=== PATIENT | male | born 1960 | race African-American/Black ===

== ENCOUNTER 2018-12-13 18:18 | Inpatient (IN) | payer OTHER, MEDICAID ==
[~2018-12-13] VITALS: Ht 172.7 cm; Wt 70.8 kg
[2018-12-13 19:07] LABS: BASOPHILS 0.4 % (0-2); EOSINOPHILS 0.7 % (0-7); HEMATOCRIT 36.9 % (42.0-54.0); HEMOGLOBIN 12.5 g/dL (13.5-17.5); IMMATURE GRANULOCYTES 0.1 % (0-5); LYMPHOCYTES 20.3 % (15-50); MCHC 33.9 g/dL (31.0-37.0); MCV 82.6 fL (80.0-100.0); MEAN PLATELET VOLUME 9.8 fL (7.4-10.4); MONOCYTES 8.4 % (2-11); NEUTROPHILS 70.1 % (40-80); PLATELET COUNT 148 10x3/uL (130-400); RBC 4.47 10x6/uL (4.20-6.10); RDW 14.7 % (11.5-14.5); WBC 7.3 10x3/uL (4.8-10.8)
[2018-12-13 19:36] LABS: ALBUMIN 3.8 g/dL (3.4-5.0); ANION GAP 12.1 mmol/L (8-16); BILIRUBIN - TOTAL 0.36 mg/dL (0.2-1.3); CALCIUM 8.7 mg/dL (8.5-10.1); CARBON DIOXIDE 25.9 mmol/L (21.0-32.0); CREATININE - SERUM 1.2 mg/dL (0.6-1.3); PROTEIN - SERUM 7.5 g/dL (6.4-8.2)
[2018-12-13 19:55] LABS: APTT 29.1 SECONDS (22.8-39.4); INR 1.14 (0.85-1.17); PROTIME 14.1 SECONDS (11.6-15.0)
[2018-12-13 19:56] LABS: D-DIMER-QUANTITATIVE 0.77 ug/mLFEU (0.20-0.54)
[2018-12-13 20:04] VITALS: BP 173/110
--- NOTE | 2018-12-13 21:01 | NUR ---
PT REPORT HANDED SCOTT, FLOOR NURSE.
--- NOTE | 2018-12-13 22:30 | NUR ---
PT ARRIVED TO ROOM 2123, PT IS AAO, LEFT FOREARM IV 20G WITH ANTIBIOTIC FINISHING INFUSING FROM ER. PT SAID [facility] BUT DENIES ANY HOME MEDIATIONS. DENIES ANY HISTORY EXCEPT HTN AND "SOME KIND OF HEPATITIS" SAID THAT HE GAVE A PACKET TO ER. PT HAS NO S/S OF DISTRESS. BEDLOW AND CALL LIGHT IN REACH. PT VERBALIZED UNDERSTANDING OF NPO AFTER MIDNIGHT . PT WILL CALL FOR ASSIST WHEN NEEDED. WILL CPOC
[2018-12-13 23:26] VITALS: BP 153/110
--- NOTE | 2018-12-14 | NUR ---
PT CALLED COMPLAINING. WHEN NURSE WALKED IN ROOM PT SET STRAIGHT UP IN BED AND STARTED SPEAKING ANGRY ABOUT WHY DID HE TELL NURSES WHAT INSURANCE HE IS ON, SAID HE SOULD HAVE ANOTHER BAG GOING ALREADY AND POINTED AT IV FLUIDS AND THEN GOT LOUDER AND SAID HE ASKED FOR PAIN MEDICATIONS IN ER AND ON THE FLOOR AT 2220 AND NURSE SAID SHE WOULD BE BACK. I CORRECTED PT AND LET HIM KNOW NURSE DOESNT LOOK AT INSURANCE, NURSE STATED THAT PT NEVER TOLD THAT HE IS WANTING PAIN MEDICATION NURSE ASKED WHERE IS THE PAIN. PT STATES HERE AND PULLS HIS SHIRT UP AND SHOWS NURSE HIS SCAR THAT IS MIDLINE LOWER ABDOMEN. TOLD PT NURSE WILL CALL DOCTOR. PT AGAIN SAID I CALLED FOR YOU OVER 30 MINS AGO, BUT YOU DONT CARE BECAUSE YOU GET PAID BY THE HOUR, NURSE STOPPED PT AND ASKED IF NURSE COULD SPEAK. ASKED PT TO LOOK AT NURSE PT REFUSED. NURSE TOLD PT THAT THERE ARE 6 OTHER PEOPLE UNDER MY CARE AND NURSE MAY TAKE A MOMENT TO COME INTO ROOM AT TIMES DEPENDING ON PRIORITY OF SITUATION. EXPLAINED TO PT THAT THERE ARE NOT ANY MORE IV FLUIDS SCHEDULED AT THIS TIME. AND THAT NURSE WILL CALL DOCTOR LORE FOR PT PAIN COMPLAINT. WILL CPOC
--- NOTE | 2018-12-14 00:17 | NUR ---
CALLED DR TORREZ REGARDING PT COMPLAINING OF ABDOMEN PAIN IN MIDLINE SCARING LOWER ABDOMEN. AND LET DR KNOW WHAT PT HAS SAID TO NURSE AND HOW PT ACTED. DOCTOR ORDERED URINE DRUG SCREEN DR ORDERED TRAMADOL 50MG Q6H PRN AND ASKED NURSE TO CHECK THE [facility] WILL PLACE ORDERS.
--- NOTE | 2018-12-14 01:07 | NUR ---
TRAMADOL GIVEN, PT VERBALIZED UNDERSTANDING OF MEDICATION. LOOKED NURSE IN EYES AND SPOKE POLITE AT THIS TIME. EDUCATED PT OF NEED FOR UDS. PT VERBALIZED UNDERSTANDING. PT BEDLOW AND CALL LIGHT IN REACH. WILL CPOC
[2018-12-14 01:54] LABS: UDS - AMPHET NEGATIVE QUAL (NEGATIVE); UDS - BARB NEGATIVE QUAL (NEGATIVE); UDS - BENZO NEGATIVE QUAL (NEGATIVE); UDS - COCAINE NEGATIVE QUAL (NEGATIVE); UDS - OPIATE NEGATIVE QUAL (NEGATIVE); UDS - PCP NEGATIVE QUAL (NEGATIVE); UDS - THC NEGATIVE QUAL (NEGATIVE)
[2018-12-14 05:32] VITALS: BP 149/74
[2018-12-14 06:13] VITALS: BP 134/91; BMI 23.7
--- NOTE | 2018-12-14 07:30 | NUR ---
ASSESSMENT COMPLETED. DENIES ANY NEEDS. NPO FOR SURGERY. LEFT AC WITH NS AT 125. ALERT AND ORIENTED. DRSG TO RIGHT LOWER LEG DRY AND INTACT IV TO LEFT AC. WILL MONITOR
--- NOTE | 2018-12-14 07:30 | NUR ---
ASSESSMENT COMPLETED. ALERT AND ORIENTED. LEFT FA SL. NPO FOR BRONCHSCOPY. DENIES ANY NEEDS. WANTING DOCTOR TO SEE HIM NOW SO HE CAN GO HOME. WILL MONITOR
[2018-12-14 09:31] VITALS: BP 168/117
[2018-12-14 10:40] VITALS: BMI 23.7
[2018-12-14 13:46] VITALS: Ht 172.7 cm; Wt 70.8 kg
--- NOTE | 2018-12-14 14:35 | NUR ---
I CONCUR WITH ASSESSMENT PERFORMED BY THE [employer] ARCHITECT
[2018-12-14 14:39] LABS: % SATURATION 33 % (15-55); IRON 109 ug/dl (35-150); TOTAL IRON BIND CAPACITY 324 ug/dl (260-445); UNSAT IRON BIND CAPACITY 215 ug/dl (150-375)
--- NOTE | 2018-12-14 15:46 | MORECARE ---
CASE MANAGEMENT DISCHARGE SUMMARY PATIENT: NAPOLEON SUTHERLAND UNIT: [id number] ADM DATE: 12/13/18 AGE: 58 : 60 SEX: M ROOM/BED: D.2124 AUTHOR: GRIFFIN AVENDAÑO PHYSICIAN: REFERRING PHYSICIAN: HARINDER TORREZ MD DATE OF SERVICE: 12/14/18 Discharge Plan Patient Name: NAPOLEON SUTHERLAND [facility] : 1960 Planned Disposition: Other Type of Facility Anticipated Discharge Date: Discharge Date: Expected LOS: Initial Reviewer: [email or web address] Initial Review Date: 12/13/2018 Generated: 12/14/18 4:45 pm Patient Name: NAPOLEON SUTHERLAND Page 11649 at 1546 All edits/amendments must be made on the electronic document DICTATION DATE: 12/14/18 1545 SEAT COVERER: JAMAL 12/14/18 1545 RPT#: [id number] DC DATE: STATUS: ADM IN [facility] [address] [place] [address] END OF REPORT
--- NOTE | 2018-12-14 15:59 | MORECARE ---
CASE MANAGEMENT DISCHARGE SUMMARY PATIENT: NAPOLEON SUTHERLAND UNIT: [id number] ADM DATE: 12/13/18 AGE: 58 : 60 SEX: M ROOM/BED: D.2124 AUTHOR: GRIFFIN AVENDAÑO PHYSICIAN: REFERRING PHYSICIAN: HARINDER TORREZ MD DATE OF SERVICE: 12/14/18 Discharge Plan Patient Name: NAPOLEON SUTHERLAND Facility: [facility]:[place] : 1960 Planned Disposition: Other Type of Facility Anticipated Discharge Date: Discharge Date: Expected LOS: Initial Reviewer: [email or web address] Initial Review Date: 12/13/2018 Generated: 12/14/18 4:59 pm DCPIA - Discharge Planning Initial Assessment Updated by [email or web address]: Consuelo Hall on 12/14/18 3:51 pm * Is the patient Alert and Oriented? Yes * How many steps to enter\exit or inside your home? none * PCP States he does not have a PCP * [facility]acy [facility] [address] [facility] Has [facility] in [place], [place], [place], [place], [place], [place], [place], [place]. * Preadmission Environment Other * Other Environment [facility] * Facility Name as above * ADLs Independent * Other Equipment Denies any DME at present * List name and contact numbers for known caregivers / representatives who currently or will assist patient after discharge: Juliet Casanova- [facility]- [phone] * Verbal permission to speak to the caregivers and representatives has been obtained from the patient. No * Community resources currently utilized None * Please name any agencies selected above. N/A * Additional services required to return to the preadmission environment? Yes * Can the patient safely return to the preadmission environment? Yes * Has this patient been hospitalized within the prior 30 days at any hospital? Yes Last DP export: 12/14/18 2:46 pm Patient Name: NAPOLEON SUTHERLAND Page [id number] at All edits/amendments must be made on the electronic document DICTATION DATE: 12/14/18 2762 HAZ TECH: JAMAL 12/14/18 3969 RPT#: [id number] DC DATE: STATUS: ADM IN [facility] [address] [place] [address] END OF REPORT
--- NOTE | 2018-12-14 16:18 | MORECARE ---
CASE MANAGEMENT DISCHARGE SUMMARY PATIENT: NAPOLEON SUTHERLAND UNIT: [id number] ADM DATE: 12/13/18 AGE: 58 : 60 SEX: M ROOM/BED: D.3909 AUTHOR: KATERYNA,DOC PHYSICIAN: REFERRING PHYSICIAN: HARINDER TORREZ MD DATE OF SERVICE: 12/14/18 Discharge Plan Patient Name: NAPOLEON SUTHERLAND Facility: [facility]:[place] : 1960 Planned Disposition: Other Type of Facility Anticipated Discharge Date: Discharge Date: Expected LOS: Initial Reviewer: [email or web address] Initial Review Date: 12/13/2018 Generated: 12/14/18 5:17 pm Comments DCP- Discharge Planning Updated by [email or web address]: Consuelo Hall on 12/14/18 3:[address] CM met with the patient at the bedside. Explained my role and requested permission to proceed with the assessment. Patient consented. He initially stated he lived with his stepmother. He made reference to staying with foloks, family members, who say they will help but do not. Stated they do not follow thru and want money. CM again addressed if he was staying with his stepmother, he said he was at the [facility] in [place]. He does not want any information discussed w/ family members. CM ask if he had been hospitalized within the last 30 days. He stated he had not. As per his H/P he was recently released from a psych facility in [place]. CM checked his medical record. He was released from [facility] in [facility]. He had an appt for the walkin clinic at [facility] scheduled for today. Denies any DME. States he can afford his medications and will get them. He is not a . He will need transportation at discharge. He will need an appointment scheduled for [facility] as follow up at discharge. Phone number [phone]. Patient states he is "anointed and cannot be touched". He is post bronchoscopy today maybe medication affect. CM will follow to assist w/ discharge planning needs. CM called [facility] to advise the patient was hospitalized. They will refuse to f/u with patients if appts are missed. . DCPIA - Discharge Planning Initial Assessment Updated by [email or web address]: Consuelo Powhatan on 12/14/18 3:51 pm * Is the patient Alert and Oriented? Yes * How many steps to enter\\exit or inside your home? none * PCP States he does not have a PCP * [facility]acy [facility] [address] [facility] Has utilized [facility] in [place], [place], [place], [place], [place] ,[place], [place], [place]. * Preadmission Environment Other * Other Environment [facility] * Facility Name as above * ADLs Independent * Other Equipment Denies any DME at present * List name and contact numbers for known caregivers / representatives who currently or will assist patient after discharge: Juliet Casanova- [facility]- [phone] * Verbal permission to speak to the caregivers and representatives has been obtained from the patient. No * Community resources currently utilized None * Please name any agencies selected above. N/A * Additional services required to return to the preadmission environment? Yes * Can the patient safely return to the preadmission environment? Yes * Has this patient been hospitalized within the prior 30 days at any hospital? Yes Last DP export: 12/14/18 2:59 pm Patient Name: NAPOLEON SUTHERLAND Page 46699 at 1618 All edits/amendments must be made on the electronic document DICTATION DATE: 12/14/181616 PRODUCTION BROACHER: JAMAL 12/14/181616 RPT#: [id number] DC DATE: STATUS: ADM IN [facility] [address] [place] [address] END OF REPORT
[2018-12-14 17:18] VITALS: BP 131/86
--- NOTE | 2018-12-14 19:05 | NUR ---
PT LAYING ON LEFT SIDE ASLEEP. RESP EVEN AND UNLABORED. NAME AND DATE PLACED ON BOARD. NO S/S OF DISTRESS. PT BEDLOW AND CALL LIGHT IN REACH. WILL CPOC
[2018-12-14 20:00] VITALS: BP 131/85
--- NOTE | 2018-12-14 20:52 | NUR ---
ROCEPHIN STARTED INFUSING. LIBRIUM AND TRAMADOL GIVEN. PT VERBALIZED UNDERSTANDING OF MEDICATION. PT IS AAO. DENIES ANY NEEDS. NO S/S OF DISTRESS. PT SAID "I AM SORRY FOR MY OUTBURST LAST NIGHT AND THE WAY I TREATED YOU" TOLD PT I APPRECIATE THAT BUT NURSE WASNT MAD. JUST GLAD HE IS FEELING BETTER. PT HAS DINNER AT BEDSIDE. DOESNT WANT IT HEATED UP. WILL HEAT WHEN PT ASKS. PT WILL CALL FOR ASSIST WHEN NEEDED. WILL CPOC
[2018-12-14 21:01] LABS: APPEARANCE CLEAR (CLEAR); BILIRUBIN NEGATIVE (NEGATIVE); COLOR YELLOW (YELLOW); GLUCOSE NEGATIVE (NEGATIVE); KETONE NEGATIVE (NEGATIVE); NITRITE NEGATIVE (NEGATIVE); PROTEIN NEGATIVE (NEGATIVE); UROBILINOGEN NORMAL (NORMAL)
[2018-12-14 21:04] LABS: MACROPHAGES BF 25 %; NEUT - BF 2 %
--- NOTE | 2018-12-14 22:11 | NUR ---
PT REQUESTING CIGARETTE PACKER BECAUSE NURSE DID NOT GET IN TO CRYPTOZOOLOGIST ANTIBIOTIC YET. EDUCATED PT IN IV FLUIDS AND ATTEMPTED TO CHANGE ANTIBIOTICS NEEDED. PT STATED "IM NOT FUCKING WITH YALL DOWN THERE GETTING HIGH RUNNING AROUND NOT DOING YOUR JOB" EXPLAINED TO PT REASONING FOR BEING LATE AND AGAIN ATTEMPTED TO HANG ANTIBIOTIC. HE STATED NO GET THE CIGARETTE PACKER NOW. CALLED [facility] CIGARETTE PACKER
--- NOTE | 2018-12-14 22:33 | NUR ---
FUEL CELL TECHNICIAN SPOKE WITH PT AND SUGGESTED CHANGING NURSES. NEW NURSE TAKING OVER PATIENT.
--- NOTE | 2018-12-14 23:01 | NUR ---
TOOK OVER PT FROM PT'S PREVIOUS RN, MARIA FERNANDA. RESTRATED PT ATBX. HELP PT HEAT UP HIS FOOD PER PT REQUEST. PT STATES HE WILL LIKE TO GET SOME SLEEP WHEN HE IS DONE EATING AND HIS "SLEEPING PILL" DOES NOT SEEM TO BE WORKING. EDUCATE PT THAT IT TAKES A LITTLE WHILE BEFORE HIS "SLEEPING PILL" PEAKS. PT DENIES ANY FURTHER NEEDS AT THIS TIME. WILL CPOC. CL IN REACH, BED IN LOW, SR UPX2.
[2018-12-15] VITALS: BP 139/72
--- NOTE | 2018-12-15 02:57 | NUR ---
PT C/O PAIN IN HIS ABDOMEN AND STATES HE CAN'T SEEM TO GET ENOUGH SLEEP. PO ULTRAM GIVEN AT THIUS TIME. WILL CPOC. CL IN REACH, BED IN LOW.
[2018-12-15 04:30] VITALS: BP 117/73
[2018-12-15 06:21] LABS: BASOPHILS 0.5 % (0-2); EOSINOPHILS 1.7 % (0-7); HEMATOCRIT 38.5 % (42.0-54.0); HEMOGLOBIN 12.8 g/dL (13.5-17.5); IMMATURE GRANULOCYTES 0.1 % (0-5); LYMPHOCYTES 26.5 % (15-50); MCH 27.5 pg (26.0-34.0); MCHC 33.2 g/dL (31.0-37.0); MCV 82.6 fL (80.0-100.0); MEAN PLATELET VOLUME 10.4 fL (7.4-10.4); NEUTROPHILS 63.2 % (40-80); PLATELET COUNT 167 10x3/uL (130-400); RBC 4.66 10x6/uL (4.20-6.10); WBC 8.5 10x3/uL (4.8-10.8)
[2018-12-15 06:39] LABS: CALCIUM 8.6 mg/dL (8.5-10.1); CARBON DIOXIDE 27.2 mmol/L (21.0-32.0); CREATININE - SERUM 1.1 mg/dL (0.6-1.3); POTASSIUM - SERUM 4.2 mmol/L (3.5-5.1)
--- NOTE | 2018-12-15 07:36 | NUR ---
MORNING ROUNDS MADE. PT LAYING IN BED RESTING. ALERT AND ORIENTED X 4. DENIES PAIN AT THIS TIME. 2L O2 VIA NC. L AC IV SL. REFUSES SCD'S AT THIS TIME. NO EDEMA NOTED. HEART RRR. NO COUGH NOTED. VITALS STABLE. NO FURTHER CONCERNS AT THIS TIME. FALL PRECAUTIONS IN PLACE. BED LOWERED AND LOCKED. CL IN REACH. SR UP X 2. WILL CTM.
--- NOTE | 2018-12-15 08:12 | NUR ---
PT SITTING UP EATING BREAKFAST. VITALS STABLE. TOOK MEDS WITHOUT DIFFICULTY. NO FURTHER CONCERNS AT THIS TIME. FALL PRECAUTIONS IN PLACE. BED LOWERED AND LOCKED. CL IN REACH. WILL CTM.
[2018-12-15 09:40] VITALS: BP 103/71
[2018-12-15] MEDS ORDERED: COREG 3.1253.125 MG PO (11:33)
[2018-12-15 13:14] VITALS: BP 113/83
--- NOTE | 2018-12-15 13:25 | MORECARE ---
CASE MANAGEMENT DISCHARGE SUMMARY PATIENT: NAPOLEON SUTHERLAND UNIT: [id number] ADM DATE: 12/13/18 AGE: 58 : 60 SEX: M ROOM/BED: D.7635 AUTHOR: KATERYNA,DOC PHYSICIAN: REFERRING PHYSICIAN: HARINDER TORREZ MD DATE OF SERVICE: 12/15/18 Discharge Plan Patient Name: NAPOLEON SUTHERLAND Facility: [facility]:[place] : 1960 Planned Disposition: Other Type of Facility Anticipated Discharge Date: 12/15/18 Discharge Date: Expected LOS: 2 Initial Reviewer: [email or web address] Initial Review Date: 12/13/2018 Generated: 12/15/18 2:24 pm DCP- Discharge Planning Updated by [email or web address]: Consuelo Hall on 12/14/18 3:[address] CM met with the patient at the bedside. Explained my role and requested permission to proceed with the assessment. Patient consented. He initially stated he lived with his stepmother. He made reference to staying with foloks, family members, who say they will help but do not. Stated they do not follow thru and want money. CM again addressed if he was staying with his stepmother, he said he was at the [facility] in [place]. He does not want any information discussed w/ family members. CM ask if he had been hospitalized within the last 30 days. He stated he had not. As per his H/P he was recently released from a psych facility in [place]. CM checked his medical record. He was released from [facility] in [facility]. He had an appt for the walkin clinic at [facility] scheduled for today. Denies any DME. States he can afford his medications and will get them. He is not a . He will need transportation at discharge. He will need an appointment scheduled for [facility] as follow up at discharge. Phone number [phone]. Patient states he is "anointed and cannot be touched". He is post bronchoscopy today maybe medication affect. CM will follow to assist w/ discharge planning needs. CM called [facility] to advise the patient was hospitalized. They will refuse to f/u with patients if appts are missed. . DCPIA - Discharge Planning Initial Assessment Updated by [email or web address]: Consuelorosaline Hall on 12/14/18 3:51 pm * Is the patient Alert and Oriented? Yes * How many steps to enter\\exit or inside your home? none * PCP States he does not have a PCP * [facility]acy [facility] [address] [facility] in [place], [place], [place], [place], [place] ,[place], [place], [place]. * Preadmission Environment Other * Other Environment [facility] * Facility Name as above * ADLs Independent * Other Equipment Denies any DME at present * List name and contact numbers for known caregivers / representatives who currently or will assist patient after discharge: Juliet Dolan Edilberto- [facility]enna [facility]- [phone] * Verbal permission to speak to the caregivers and representatives has been obtained from the patient. No * Community resources currently utilized None * Please name any agencies selected above. N/A * Additional services required to return to the preadmission environment? Yes * Can the patient safely return to the preadmission environment? Yes * Has this patient been hospitalized within the prior 30 days at any hospital? Yes Last DP export: 12/14/18 3:17 pm Patient Name: NAPOLEON SUTHERLAND Page [id number] at 1325 All edits/amendments must be made on the electronic document DICTATION DATE: 12/15/18 1324 GROUT MACHINE TENDER: JAMAL 12/15/18 1324 RPT#: [id number] DC DATE: STATUS: ADM IN [facility] [address] [place] [address] END OF REPORT
--- NOTE | 2018-12-15 13:34 | MORECARE ---
CASE MANAGEMENT DISCHARGE SUMMARY PATIENT: NAPOLEON SUTHERLAND UNIT: [id number] ADM DATE: 12/13/18 AGE: 58 : 60 SEX: M ROOM/BED: D.1959 AUTHOR: KATERYNADOC PHYSICIAN: REFERRING PHYSICIAN: HARINDER TORREZ MD DATE OF SERVICE: 12/15/18 Discharge Plan Patient Name: NAPOLEON SUTHERLAND Facility: [facility]:[place] : 1960 Planned Disposition: Other Type of Facility Anticipated Discharge Date: 12/15/18 Discharge Date: Expected LOS: 2 Initial Reviewer: [email or web address] Initial Review Date: 12/13/2018 Generated: 12/15/18 2:34 pm Comments DCP- Discharge Planning Updated by [email or web address]: Marcos Rodgers on 12/15/18 12:[address] Patient Name: NAPOLEON SUTHERLAND Encounter No: [id number] : 1960 Primary Insurance: [id number] Anticipated DC Date: 12-15-2018 Planned Disposition: Other Type of Facility External Planned Provider: [facility] [place] DCP follow-up note: CM RECEIVED DISCHARGE ORDER, MET WITH PT ROOM TO DISCUSS DISCHARGE PLANNING AND NEEDS. PT REPORTS HE IS GOING TO [facility] AND ASKED FOR TRANSPORTATION ASSISTANCE. CM PROVIDED BUS PASS. PT REPORTS PLAN TO REMAIN IN [place] AND WOULD LIKE FOLLOW UP APPOINTMENT IN [place]; PT HAS NOT WAY TO GO TO [place] FOR PRIMARY CARE FOLLOW UP AND STATES " I DON'T KNOW WHERE THAT IS." PT DENIES FURTHER DISCHARGE NEEDS. SR. DIRECTOR PRODUCT MANAGEMENT NURSE NOTIFIED. Marcos Rodgers, CASE MANAGEMENT DCP- Discharge Planning Updated by [email or web address]: Consuelo Hall on 12/14/18 3:[address] CM met with the patient at the bedside. Explained my role and requested permission to proceed with the assessment. Patient consented. He initially stated he lived with his stepmother. He made reference to staying with foloks, family members, who say they will help but do not. Stated they do not follow thru and want money. CM again addressed if he was staying with his stepmother, he said he was at the [facility] in [place]. He does not want any information discussed w/ family members. CM ask if he had been hospitalized within the last 30 days. He stated he had not. As per his H/P he was recently released from a psych facility in [place]. CM checked his medical record. He was released from [facility] in [facility]. He had an appt for the walkin clinic at [facility] scheduled for today. Denies any DME. States he can afford his medications and will get them. He is not a . He will need transportation at discharge. He will need an appointment scheduled for [facility] as follow up at discharge. Phone number [phone]. Patient states he is "anointed and cannot be touched". He is post bronchoscopy today maybe medication affect. CM will follow to assist w/ discharge planning needs. CM called [facility] to advise the patient was hospitalized. They will refuse to f/u with patients if appts are missed. . DCPIA - Discharge Planning Initial Assessment Updated by [email or web address]: Consuelo Hall on 12/14/18 3:51 pm * Is the patient Alert and Oriented? Yes * How many steps to enter\\exit or inside your home? none * PCP States he does not have a PCP * Pharmacy [facility] [address] [facility] [place], [place], [place], [place], [place], [place], [place], [place]. * Preadmission Environment Other * Other Environment [facility] * Facility Name as above * ADLs Independent * Other Equipment Denies any DME at present * List name and contact numbers for known caregivers / representatives who currently or will assist patient after discharge: Juliet Casanova- kenna mother- [phone] * Verbal permission to speak to the caregivers and representatives has been obtained from the patient. No * Community resources currently utilized None * Please name any agencies selected above. N/A * Additional services required to return to the preadmission environment? Yes * Can the patient safely return to the preadmission environment? Yes * Has this patient been hospitalized within the prior 30 days at any hospital? Yes Last DP export: 12/15/18 12:25 p Patient Name: NAPOLEON SUTHERLAND Page [id number] at 1334 All edits/amendments must be made on the electronic document DICTATION DATE: 12/15/181333 COTTON GROWER: JAMAL 12/15/181333 RPT#: [id number] DC DATE: STATUS: ADM IN [facility] [address] [place] [address] END OF REPORT
--- NOTE | 2018-12-15 14:00 | NUR ---
DC GIVEN TO PT. IV REMOVED TIP INTACT.
--- NOTE | 2018-12-15 14:01 | NUR ---
PT DC VIA WHEELCHAIR TO BUS STOP.
[2018-12-15 17:08] LABS: AFB SPECIMEN PROCESSING Concentration (())
[2018-12-15 17:08] LABS: FOLATE (FOLIC ACID) - SERUM 9.9 ng/mL (>3.0)
[2019-02-02 13:18] LABS: ACID FAST CULTURE Negative (()); ACID FAST SMEAR Negative (())
== END 2018-12-15 14:01 | disposition home or self-care (01) | DRG 194 ==
LOC: D.ER 18:18 → D.M2 20:03
PROVIDERS: Emergency Medicine; Family Medicine; Internal Medicine Pulmonary Disease; ADMIT Internal Medicine Nephrology; ATTEND Internal Medicine Nephrology
PROC: 0B9F8ZX Drainage of Right Lower Lung Lobe, Via Natural or Artificial Opening Endoscopic, Diagnostic (ICD-10-PCS; principal; 2018-12-14 10:55)
DX: J18.9 Pneumonia, unspecified organism (principal); R04.2 Hemoptysis; N17.9 Acute kidney failure, unspecified; F17.213 Nicotine dependence, cigarettes, with withdrawal; I10 Essential (primary) hypertension; D64.9 Anemia, unspecified; F10.10 Alcohol abuse, uncomplicated; F32.9 Major depressive disorder, single episode, unspecified; Z86.718 Personal history of other venous thrombosis and embolism

== ENCOUNTER 2018-12-20 00:45 | Emergency (ER) | payer MEDICAID ==
[~2018-12-20] VITALS: Ht 172.7 cm; Wt 72.7 kg
[~2018-12-20 00:45] MED LIST: COREG 3.1253.125 MG PO
[2018-12-20 01:13] LABS: APPEARANCE CLEAR (CLEAR); BILIRUBIN NEGATIVE (NEGATIVE); COLOR YELLOW (YELLOW); GLUCOSE NEGATIVE (NEGATIVE); KETONE NEGATIVE (NEGATIVE); NITRITE NEGATIVE (NEGATIVE); PROTEIN NEGATIVE (NEGATIVE); UROBILINOGEN NORMAL (NORMAL)
[2018-12-20 01:18] LABS: UDS - AMPHET NEGATIVE QUAL (NEGATIVE); UDS - BARB NEGATIVE QUAL (NEGATIVE); UDS - BENZO POSITIVE QUAL (NEGATIVE); UDS - COCAINE NEGATIVE QUAL (NEGATIVE); UDS - OPIATE NEGATIVE QUAL (NEGATIVE); UDS - PCP NEGATIVE QUAL (NEGATIVE); UDS - THC POSITIVE QUAL (NEGATIVE)
[2018-12-20 01:20] LABS: BASOPHILS 0.5 % (0-2); EOSINOPHILS 1.8 % (0-7); HEMATOCRIT 33.9 % (42.0-54.0); HEMOGLOBIN 11.4 g/dL (13.5-17.5); IMMATURE GRANULOCYTES 0.3 % (0-5); LYMPHOCYTES 23.2 % (15-50); MCH 27.5 pg (26.0-34.0); MCHC 33.6 g/dL (31.0-37.0); MCV 81.7 fL (80.0-100.0); MEAN PLATELET VOLUME 9.4 fL (7.4-10.4); MONOCYTES 7.4 % (2-11); NEUTROPHILS 66.8 % (40-80); PLATELET COUNT 153 10x3/uL (130-400); RBC 4.15 10x6/uL (4.20-6.10); RDW 14.7 % (11.5-14.5); WBC 6.7 10x3/uL (4.8-10.8)
[2018-12-20] MEDS ORDERED: ZOLOFT100 MG PO (01:23)
[2018-12-20] MEDS ORDERED: GEODON40 MG PO (01:24)
[2018-12-20 01:36] LABS: ALBUMIN 3.6 g/dL (3.4-5.0); ALKALINE PHOSPHATASE 76 U/L (46-116); ALT (SGPT) 35 U/L (10-68); BILIRUBIN - TOTAL 0.42 mg/dL (0.2-1.3); CALC OSMOLALITY 273 mosm/kg (275-300); CALCIUM 8.2 mg/dL (8.5-10.1); CARBON DIOXIDE 21.8 mmol/L (21.0-32.0); CHLORIDE - SERUM 104 mmol/L (98-107); CREATININE - SERUM 0.9 mg/dL (0.6-1.3); GLUCOSE 95 mg/dL (74-106); MAGNESIUM - SERUM 1.8 mg/dL (1.8-2.4); POTASSIUM - SERUM 4.2 mmol/L (3.5-5.1); PROTEIN - SERUM 7.4 g/dL (6.4-8.2); SODIUM 137 mmol/L (136-145); UREA NITROGEN 12 mg/dL (7-18); eGFR NON AFRICAN AMERICAN > 90 mL/min (90-120)
== END 2018-12-20 04:04 ==
LOC: D.ER 00:45
PROVIDERS: Family Medicine
DX: F32.9 Major depressive disorder, single episode, unspecified (principal); R44.0 Auditory hallucinations; Z86.19 Personal history of other infectious and parasitic diseases; I10 Essential (primary) hypertension; Z91.14 Patient's other noncompliance with medication regimen; R45.851 Suicidal ideations

== ENCOUNTER 2019-01-17 12:47 | Emergency (ER) | payer OTHER, MEDICAID ==
[~2019-01-17] VITALS: Ht 172.7 cm; Wt 70.5 kg
[~2019-01-17 12:47] MED LIST changes: +GEODON40 MG PO; +ZOLOFT100 MG PO
[2019-01-17 12:52] VITALS: Ht 172.7 cm; Wt 70.5 kg
[2019-01-17 16:26] LABS: BASOPHILS 0.4 % (0-2); EOSINOPHILS 2.2 % (0-7); HEMOGLOBIN 12.9 g/dL (13.5-17.5); IMMATURE GRANULOCYTES 0.2 % (0-5); LYMPHOCYTES 32.7 % (15-50); MCH 28.2 pg (26.0-34.0); MCHC 33.9 g/dL (31.0-37.0); MCV 83.2 fL (80.0-100.0); MEAN PLATELET VOLUME 10.6 fL (7.4-10.4); MONOCYTES 10.4 % (2-11); NEUTROPHILS 54.1 % (40-80); RBC 4.57 10x6/uL (4.20-6.10); RDW 16.2 % (11.5-14.5); WBC 4.9 10x3/uL (4.8-10.8)
[2019-01-17 16:45] LABS: PLATELET COUNT 122 10x3/uL (130-400)
[2019-01-17 16:51] LABS: ALBUMIN 3.8 g/dL (3.4-5.0); ALKALINE PHOSPHATASE 78 U/L (46-116); ALT (SGPT) 42 U/L (10-68); BILIRUBIN - TOTAL 0.74 mg/dL (0.2-1.3); CALC OSMOLALITY 278 mosm/kg (275-300); CALCIUM 8.9 mg/dL (8.5-10.1); CARBON DIOXIDE 28.3 mmol/L (21.0-32.0); CHLORIDE - SERUM 103 mmol/L (98-107); GLUCOSE 91 mg/dL (74-106); POTASSIUM - SERUM 4.3 mmol/L (3.5-5.1); SODIUM 140 mmol/L (136-145); UREA NITROGEN 13 mg/dL (7-18); eGFR NON AFRICAN AMERICAN 81 mL/min (90-120)
[2019-01-17 18:38] LABS: CKMB 0.9 U/L (0.0-3.6); CREATINE KINASE 205 UL (21-232)
[2019-01-17 18:39] LABS: TROPONIN-I < 0.017 ng/mL (0.000-0.060)
[2019-01-17] MEDS ORDERED: COREG 3.1253.125 MG PO (20:26)
[2019-01-17 20:57] VITALS: BP 125/92
== END 2019-01-17 20:57 | disposition home or self-care (01) ==
LOC: D.ER 12:47
PROVIDERS: Family Medicine
DX: Z71.1 Person with feared health complaint in whom no diagnosis is made (principal); Z59.0 Homelessness

== ENCOUNTER 2019-07-18 11:46 | Inpatient (IN) | payer OTHER, MEDICAID ==
[~2019-07-18] VITALS: Ht 172.7 cm; Wt 68.2 kg
[2019-07-18 17:01] LABS: BASOPHILS 0.5 % (0-2); EOSINOPHILS 3.3 % (0-7); HEMATOCRIT 37.5 % (42.0-54.0); HEMOGLOBIN 12.2 g/dL (13.5-17.5); IMMATURE GRANULOCYTES 0.2 % (0-5); LYMPHOCYTES 30.2 % (15-50); MCH 28.4 pg (26.0-34.0); MCHC 32.5 g/dL (31.0-37.0); MCV 87.2 fL (80.0-100.0); MEAN PLATELET VOLUME 9.3 fL (7.4-10.4); NEUTROPHILS 55.8 % (40-80); PLATELET COUNT 119 10x3/uL (130-400); RDW 14.5 % (11.5-14.5); WBC 6.3 10x3/uL (4.8-10.8)
[2019-07-18 17:20] LABS: CALC OSMOLALITY 276 mosm/kg (275-300); CALCIUM 8.9 mg/dL (8.5-10.1); CARBON DIOXIDE 28.1 mmol/L (21.0-32.0); CHLORIDE - SERUM 102 mmol/L (98-107); GLUCOSE 92 mg/dL (74-106); POTASSIUM - SERUM 3.9 mmol/L (3.5-5.1); SODIUM 139 mmol/L (136-145); UREA NITROGEN 9 mg/dL (7-18); eGFR NON AFRICAN AMERICAN 81 mL/min (90-120)
[2019-07-18 17:27] LABS: ALBUMIN 3.4 g/dL (3.4-5.0); ALKALINE PHOSPHATASE 75 U/L (46-116); ALT (SGPT) 29 U/L (10-68); BILIRUBIN - TOTAL 0.57 mg/dL (0.2-1.3); PROTEIN - SERUM 7.4 g/dL (6.4-8.2)
[2019-07-18 19:30] VITALS: BP 119/76
[2019-07-19] VITALS (7 sets, daily range): BP systolic 100–123; BP diastolic 57–78; Ht 172.7 cm; Wt 68.2 kg
--- NOTE | 2019-07-19 03:06 | NUR ---
I have reviewed this patient and I concur with the Shift Assessment completed by the Licensed Practical Nurse today this shift.
[2019-07-19 04:52] LABS: BASOPHILS 0.3 % (0-2); HEMATOCRIT 36.2 % (42.0-54.0); HEMOGLOBIN 11.6 g/dL (13.5-17.5); IMMATURE GRANULOCYTES 0.4 % (0-5); LYMPHOCYTES 26.1 % (15-50); MCH 27.7 pg (26.0-34.0); MCV 86.4 fL (80.0-100.0); MEAN PLATELET VOLUME 10.1 fL (7.4-10.4); MONOCYTES 11.1 % (2-11); NEUTROPHILS 59.1 % (40-80); PLATELET COUNT 141 10x3/uL (130-400); RBC 4.19 10x6/uL (4.20-6.10); RDW 14.7 % (11.5-14.5); WBC 6.8 10x3/uL (4.8-10.8)
[2019-07-19 05:11] LABS: INR 1.13 (0.85-1.17)
[2019-07-19 05:12] LABS: APTT 38.4 SECONDS (22.8-39.4)
[2019-07-19 05:20] LABS: D-DIMER-QUANTITATIVE 18.37 ug/mLFEU (0.20-0.54)
[2019-07-19 05:26] LABS: ALBUMIN 2.9 g/dL (3.4-5.0); ALKALINE PHOSPHATASE 66 U/L (46-116); ALT (SGPT) 25 U/L (10-68); BILIRUBIN - TOTAL 0.38 mg/dL (0.2-1.3); CALC OSMOLALITY 273 mosm/kg (275-300); CALCIUM 8.1 mg/dL (8.5-10.1); CARBON DIOXIDE 26.9 mmol/L (21.0-32.0); CHLORIDE - SERUM 103 mmol/L (98-107); GLUCOSE 93 mg/dL (74-106); MAGNESIUM - SERUM 1.6 mg/dL (1.8-2.4); PHOSPHOROUS 4.4 mg/dL (2.5-4.9); POTASSIUM - SERUM 4.2 mmol/L (3.5-5.1); PRO BNP 41 pg/mL (0-125); PROTEIN - SERUM 6.6 g/dL (6.4-8.2); SODIUM 137 mmol/L (136-145); UREA NITROGEN 13 mg/dL (7-18); eGFR NON AFRICAN AMERICAN 81 mL/min (90-120)
--- NOTE | 2019-07-19 07:10 | NUR ---
PT RESTING IN BED. NO SIGNS OF DISTRESS. IV TO RIGHT FORARM PATENT NO REDNESS OR TENDERNESS. COMPLAINS OF PAIN. WILL ADDRESS. DENIES ANY FURTHER NEED AT THIS TIME. CALL LIGHT IN REACH. BED LOW POSITION. NO FAMILY AT BEDSIDE AT THIS TIME.
[2019-07-19 09:07] LABS: UDS - AMPHET NEGATIVE QUAL (NEGATIVE); UDS - BARB NEGATIVE QUAL (NEGATIVE); UDS - BENZO NEGATIVE QUAL (NEGATIVE); UDS - COCAINE POSITIVE QUAL (NEGATIVE); UDS - OPIATE POSITIVE QUAL (NEGATIVE); UDS - PCP NEGATIVE QUAL (NEGATIVE); UDS - THC POSITIVE QUAL (NEGATIVE)
[2019-07-19 10:13] LABS: APPEARANCE CLEAR (CLEAR); BACTERIA FEW /hpf (NEGATIVE); BILIRUBIN NEGATIVE (NEGATIVE); COLOR YELLOW (YELLOW); GLUCOSE NEGATIVE (NEGATIVE); KETONE NEGATIVE (NEGATIVE); NITRITE NEGATIVE (NEGATIVE); PROTEIN NEGATIVE (NEGATIVE); RED CELLS - URINE 0-5 /hpf (0-5); UROBILINOGEN NORMAL (NORMAL); WHITE CELLS - URINE NSEEN /hpf (NEGATIVE)
[2019-07-19 10:14] LABS: EPITHELIAL CELLS RARE /hpf (0-5)
--- NOTE | 2019-07-19 12:31 | NUR ---
I have reviewed this patient and I concur with the Shift Assessment completed by the Licensed Practical Nurse today this shift.
--- NOTE | 2019-07-20 00:13 | NUR ---
ASSESSED AT THE BEGINNING OF THE SHIFT. PT IS ALERT AND ORIENTED, ABLE TO VERBALIZE NEEDS. HE HAS BEEN RESTING QUIET BUT AT HS DID REQUEST MORPHINE TO HELP LEFT LEG AND GROIN PAIN . THIS HAS ALSO SEEMED TO HELP HIM WITH RESTING AND HE IS ASLEEP AT THIS TIME.
[2019-07-20 00:30] VITALS: BP 122/69
[2019-07-20 05:19] VITALS: BP 131/76
[2019-07-20 06:47] LABS: CALC OSMOLALITY 275 mosm/kg (275-300); CALCIUM 8.5 mg/dL (8.5-10.1); CHLORIDE - SERUM 104 mmol/L (98-107); CREATININE - SERUM 0.9 mg/dL (0.6-1.3); GLUCOSE 99 mg/dL (74-106); MAGNESIUM - SERUM 1.8 mg/dL (1.8-2.4); PHOSPHOROUS 3.6 mg/dL (2.5-4.9); POTASSIUM - SERUM 4.1 mmol/L (3.5-5.1); SODIUM 138 mmol/L (136-145); UREA NITROGEN 13 mg/dL (7-18); eGFR NON AFRICAN AMERICAN > 90 mL/min (90-120)
[2019-07-20 06:49] LABS: BASOPHILS 0.4 % (0-2); EOSINOPHILS 2.3 % (0-7); HEMATOCRIT 35.8 % (42.0-54.0); HEMOGLOBIN 11.7 g/dL (13.5-17.5); IMMATURE GRANULOCYTES 0.4 % (0-5); LYMPHOCYTES 23.7 % (15-50); MCHC 32.7 g/dL (31.0-37.0); MCV 85.6 fL (80.0-100.0); MONOCYTES 10.7 % (2-11); NEUTROPHILS 62.5 % (40-80); PLATELET COUNT 168 10x3/uL (130-400); RBC 4.18 10x6/uL (4.20-6.10); RDW 14.5 % (11.5-14.5); WBC 7.5 10x3/uL (4.8-10.8)
--- NOTE | 2019-07-20 07:40 | NUR ---
PT IS RESTING IN BED WITH EYES OPEN. RESPIATIONS ARE EVEN AND UNLABORED. PT IS AAO X 4. PT REPORTS PAIN TO LEFT GROIN. WILL ADDRESS. SEE EMAR. BILATERAL PEDAL PULSES PALP. PT DENIES PRESENCE OF N/V. PT STATES THAT HE HAS "A LITTLE BIT OF A HEADACHE". PT DENEIS PRESENCE OF DIZZINESS. BED IS IN THE LOWEST POSITION. CALL LIGHT AND BEDSIDE TABLE ARE WITHIN REACH. SIDE RAILS X 2. PT DENIES FURTHER NEEDS. WILL CONT TO MONITOR.
[2019-07-20 08:50] VITALS: BP 121/80
[2019-07-20] MEDS ORDERED: ELIQUIS5 MG PO (09:57)
--- NOTE | 2019-07-20 11:46 | MORECARE ---
CASE MANAGEMENT DISCHARGE SUMMARY PATIENT: NAPOLEON SUTHERLAND III UNIT: [id number] ADM DATE: 07/18/19 AGE: 58 : 60 SEX: M ROOM/BED: D.2230 AUTHOR: GRIFFIN AVENDAÑO PHYSICIAN: REFERRING PHYSICIAN: PATRICIA WATKINS MD DATE OF SERVICE: 07/20/19 Discharge Plan Patient Name: NAPOLEON SUTHERLAND [facility] : 1960 Planned Disposition: Home Anticipated Discharge Date: 07/20/19 Discharge Date: Expected LOS: 2 Initial Reviewer: [email or web address] Initial Review Date: 07/20/2019 Generated: 07/20/19 12:46 pm Patient Name: NAPOLEON SUTHERLAND Page [id number] at 1146 All edits/amendments must be made on the electronic document DICTATION DATE: 07/20/19 1146 DRIVER EDUCATION INSTRUCTOR: JAMAL 07/20/19 1146 RPT#: [id number] DC DATE: STATUS: ADM IN [facility] [address] [place] [address] END OF REPORT
--- NOTE | 2019-07-20 11:55 | MORECARE ---
CASE MANAGEMENT DISCHARGE SUMMARY PATIENT: NAPOLEON SUTHERLAND III UNIT: [id number] ADM DATE: 07/18/19 AGE: 58 : 60 SEX: M ROOM/BED: D.2230 AUTHOR: GRIFFIN AVENDAÑO PHYSICIAN: REFERRING PHYSICIAN: PATRICIA WATKINS MD DATE OF SERVICE: 07/20/19 Discharge Plan Patient Name: NAPOLEON SUTHERLAND [facility] [facility] 1960 Planned Disposition: Home Anticipated Discharge Date: 07/20/19 Discharge Date: Expected LOS: 2 Initial Reviewer: [email or web address] Initial Review Date: 07/20/2019 Generated: 07/20/19 12:55 pm DCPIA - Discharge Planning Initial Assessment Updated by [email or web address]: Fely Bajwa on 07/20/19 11:48 am * Is the patient Alert and Oriented? Yes * How many steps to enter\exit or inside your home? 0/0 * PCP No PCP * Pharmacy [facility] on [facility] * Preadmission Environment Homeless * Other Environment Lives in a tent * ADLs Independent * Equipment None * List name and contact numbers for known caregivers / representatives who currently or will assist patient after discharge: Juliet Casanova [facility] [phone] * Verbal permission to speak to the caregivers and representatives has been obtained from the patient. Yes * Community resources currently utilized None * Additional services required to return to the preadmission environment? No * Can the patient safely return to the preadmission environment? Yes * Has this patient been hospitalized within the prior 30 days at any hospital? No Last DP export: 07/20/19 10:46 Patient Name: NAPOLEON SUTHERLAND Page 32382 at 1155 All edits/amendments must be made on the electronic document DICTATION DATE: 07/20/19 1155 PERINATAL EDUCATOR: JAMAL 07/20/19 1155 RPT#: [id number] DC DATE: STATUS: ADM IN [facility] [address] [place] [address] END OF REPORT
--- NOTE | 2019-07-20 12:05 | NUR ---
PT STATES THAT HE IS UPSET WITH DECISION TO DISCHARGE. PT STATES "THEY AINT DONE NOTHING TO HELP ME. I COME HERE BECAUSE OF PAIN AND DONT NOBODY CARE THAT I AM STILL IN PAIN". PT INFORMED OF ADMITTING DX AND PLAN OF CARE REGARDING ADMISSION DX. PT STATES "THEY STILL AINT DONE NOTHING ABOUT THAT. I AM JUST GOING TO WALK UP OUT OF HERE". PT ENCOURAGED TO WAIT FOR DISCHARGE PAPERS. PT IS COOPERATIVE IN ALLOWING FOR PIV TO RIGHT FA TO BE REMOVED. CATHETER TIP INTACT DRESSING APPLIED. PT STATES THAT HE WILL WAIT FOR DISCHARGE PAPERS AND STATES "IM ALRIGHT. IM ALRIGHT". PT IN ROOM AND DENIES FURTHER NEEDS AT THIS TIME. WILL CONT TO MONITOR.
--- NOTE | 2019-07-20 12:07 | MORECARE ---
CASE MANAGEMENT DISCHARGE SUMMARY PATIENT: NAPOLEON SUTHERLAND III UNIT: [id number] ADM DATE: 07/18/19 AGE: 58 : 60 SEX: M ROOM/BED: D.2230 AUTHOR: KATERYNADOC PHYSICIAN: REFERRING PHYSICIAN: PATRICIA WATKINS MD DATE OF SERVICE: 07/20/19 Discharge Plan Patient Name: NAPOLEON SUTHERLAND Facility: [facility]:[place] : 1960 Planned Disposition: Home Anticipated Discharge Date: 07/20/19 Discharge Date: Expected LOS: 2 Initial Reviewer: [email or web address] Initial Review Date: 07/20/2019 Generated: 07/20/19 1:07 pm Comments DCP- Discharge Planning Updated by [email or web address]: Fely Bajwa on 07/20/19 10:[address] Patient Name: NAPOLEON SUTHERLAND Admission Status: ER Accout number: [id number] Admission Date: 07-18-2019 : 1960 Admission Diagnosis: Attending: PORFIRIO WATKINS Current LOS: 2 Anticipated DC Date: 07-20-2019 Planned Disposition: Home Primary Insurance: NOVESCAPESwithYOU Discharge Planning Comments: CM met with patient to discuss discharge planning/needs, he is alone in the room. Patient states he lives in a tent by [employer]. He states he will walk home. I offered bus tickets and he accepted. I gave him two, so he could get to his pharmacy as well. I also gave him a list of local shelters and substance abuse facilities. He states he has been at [facility] before. He will receive a eliquis coupon on discharge, flow worker notified. CM will continue to follow and assist with discharge planning/needs. Organ Installer: Fely Bajwa DCPIA - Discharge Planning Initial Assessment Updated by [email or web address]: Fely Bajwa on 07/20/19 11:48 am * Is the patient Alert and Oriented? Yes * How many steps to enter\exit or inside your home? 0/0 * PCP No PCP * Pharmacy [facility] on [address] * Preadmission Environment Homeless * Other Environment Lives in a tent * ADLs Independent * Equipment None * List name and contact numbers for known caregivers / representatives who currently or will assist patient after discharge: Juliet Dolan Edilberto [facility] - [phone] * Verbal permission to speak to the caregivers and representatives has been obtained from the patient. Yes * Community resources currently utilized None * Additional services required to return to the preadmission environment? No * Can the patient safely return to the preadmission environment? Yes * Has this patient been hospitalized within the prior 30 days at any hospital? No Last DP export: 07/20/19 10:55 Patient Name: NAPOLEON SUTHERLAND Page [phone] at 1207 All edits/amendments must be made on the electronic document DICTATION DATE: 07/20/191206 POUND ATTENDANT: JAMAL 07/20/191206 RPT#: [id number] DC DATE: STATUS: ADM IN [facility] [address] [place] [address] END OF REPORT
--- NOTE | 2019-07-20 13:00 | NUR ---
ALL DISCHARGE INSTRUCTIONS COVERED WITH PT. PT DENIES FURTHER QUESTIONS AT THIS TIME. PT STATES, "YALL DIDN'T DO ANYTHING TO HELP ME. YALL ARE JUST GOING TO COLLECT MY SALARY. I GUESS YALL JUST WANT ME OUT ON THE STREET". PT EDUCATED ON PLAN OF CARE AND MEDICATION TO BE PICKED UP FROM PHARMACY AND DISCHARGE INSTRUCTIONS. PT DENIES FURTHER NEEDS AND STATES "LETS JUST GET THIS OVER WITH SO I CAN GO". ALL DISCHARGE PAPERS SIGNED. FLU SHOT GIVEN. SEE EMAR. PT AMBULATES FROM ROOM AND REFUSES WHEELCHAIR ESCORT.
--- NOTE | 2019-07-22 14:05 | MORECARE ---
CASE MANAGEMENT DISCHARGE SUMMARY PATIENT: NAPOLEON SUTHERLAND III UNIT: [id number] ADM DATE: 07/18/19 AGE: 58 : 60 SEX: M ROOM/BED: D.2230 AUTHOR: KATERYNA,DOC PHYSICIAN: REFERRING PHYSICIAN: PATRICIA WATKINS MD DATE OF SERVICE: 07/22/19 Discharge Plan Patient Name: NAPOLEON SUTHERLAND Facility[facility]:[place] : 1960 Planned Disposition: Home Anticipated Discharge Date: 07/20/19 Discharge Date: 07/20/2019 Expected LOS: 2 Initial Reviewer: [email or web address] Initial Review Date: 07/20/2019 Generated: 07/22/19 3:05 pm Comments DCP- Discharge Planning Updated by [email or web address]: Fely Bajwa on 07/20/19 10:[address] Patient Name: NAPOLEON SUTHERLAND Admission Status: ER Accout number: [id number] Admission Date: 07-18-2019 : 1960 Admission Diagnosis: Attending: PORFIRIO WATKINS Current LOS: 2 Anticipated DC Date: 07-20-2019 Planned Disposition: Home Primary Insurance: NOVCashier Live Discharge Planning Comments: CM met with patient to discuss discharge planning/needs, he is alone in the room. Patient states he lives in a tent by [employer]. He states he will walk home. I offered bus tickets and he accepted. I gave him two, so he could get to his pharmacy as well. I also gave him a list of local shelters and substance abuse facilities. He states he has been at [facility] before. He will receive a eliquis coupon on discharge, respite coordinator notified. CM will continue to follow and assist with discharge planning/needs. Instrumental Teacher: Feyl Bajwa DCPIA - Discharge Planning Initial Assessment Updated by [email or web address]: Fely Bajwa on 07/20/19 11:48 am * Is the patient Alert and Oriented? Yes * How many steps to enter\exit or inside your home? 0/0 * PCP No PCP * Pharmacy [facility] [address] * Preadmission Environment Homeless * Other Environment Lives in a tent * ADLs Independent * Equipment None * List name and contact numbers for known caregivers / representatives who currently or will assist patient after discharge: Juliet Dolan Edilberto [facility] - [phone] * Verbal permission to speak to the caregivers and representatives has been obtained from the patient. Yes * Community resources currently utilized None * Additional services required to return to the preadmission environment? No * Can the patient safely return to the preadmission environment? Yes * Has this patient been hospitalized within the prior 30 days at any hospital? No Last DP export: 07/20/19 11:07 Patient Name: NAPOLEON SUTHERLAND Page 23045 at 1405 All edits/amendments must be made on the electronic document DICTATION DATE: 07/22/191404 OCCUPATIONAL MEDICINE PHYSICIAN: JAMAL 07/22/19 140 RPT#: [id number] DC DATE:07/20/19 STATUS: DIS IN [facility] [address] [place] [address] END OF REPORT
== END 2019-07-20 13:04 | disposition home or self-care (01) | DRG 300 ==
LOC: D.ER 11:46 → D.MS 17:30
PROVIDERS: Family Medicine; ADMIT Emergency Medicine; ATTEND Emergency Medicine
DX: I82.432 Acute embolism and thrombosis of left popliteal vein (principal); F17.203 Nicotine dependence unspecified, with withdrawal; I10 Essential (primary) hypertension; D64.9 Anemia, unspecified; Z95.828 Presence of other vascular implants and grafts; Z86.718 Personal history of other venous thrombosis and embolism; F19.10 Other psychoactive substance abuse, uncomplicated

== ENCOUNTER 2019-08-17 09:10 | Emergency (ER) | payer OTHER, MEDICAID ==
[~2019-08-17] VITALS: Ht 172.7 cm; Wt 81.8 kg
[~2019-08-17 09:10] MED LIST changes: +ELIQUIS5 MG PO
[2019-08-17 09:19] VITALS: Ht 172.7 cm; Wt 81.8 kg
[2019-08-17 10:15] LABS: BASOPHILS 0.3 % (0-2); EOSINOPHILS 0.9 % (0-7); HEMOGLOBIN 10.4 g/dL (13.5-17.5); IMMATURE GRANULOCYTES 0.2 % (0-5); LYMPHOCYTES 14.9 % (15-50); MCH 27.3 pg (26.0-34.0); MCHC 32.5 g/dL (31.0-37.0); MEAN PLATELET VOLUME 9.7 fL (7.4-10.4); MONOCYTES 8.7 % (2-11); PLATELET COUNT 194 10x3/uL (130-400); RBC 3.81 10x6/uL (4.20-6.10); RDW 14.2 % (11.5-14.5); WBC 6.5 10x3/uL (4.8-10.8)
[2019-08-17 10:23] LABS: APPEARANCE CLEAR (CLEAR); BILIRUBIN NEGATIVE (NEGATIVE); COLOR YELLOW (YELLOW); GLUCOSE NEGATIVE (NEGATIVE); KETONE NEGATIVE (NEGATIVE); NITRITE NEGATIVE (NEGATIVE); PROTEIN TRACE mg/dL (NEGATIVE); UROBILINOGEN NORMAL (NORMAL)
[2019-08-17 10:24] LABS: AMORPHOUS SEDIMENT <1+ /lpf (NONE SEEN); BACTERIA FEW /hpf (NEGATIVE); EPITHELIAL CELLS 0-5 /hpf (0-5); HYALINE CAST 0-5 /lpf (NONE SEEN); MUCUS <1+ /lpf (NONE SEEN); RED CELLS - URINE 0-5 /hpf (0-5); WHITE CELLS - URINE 0-5 /hpf (NEGATIVE)
[2019-08-17 10:26] LABS: ANION GAP 15.4 mmol/L (8-16); CALCIUM 8.8 mg/dL (8.5-10.1); CARBON DIOXIDE 25.6 mmol/L (21.0-32.0); CREATININE - SERUM 1.4 mg/dL (0.6-1.3)
[2019-08-17 10:26] LABS: UDS - AMPHET POSITIVE QUAL (NEGATIVE); UDS - BARB NEGATIVE QUAL (NEGATIVE); UDS - BENZO NEGATIVE QUAL (NEGATIVE); UDS - COCAINE NEGATIVE QUAL (NEGATIVE); UDS - OPIATE NEGATIVE QUAL (NEGATIVE); UDS - PCP NEGATIVE QUAL (NEGATIVE); UDS - THC POSITIVE QUAL (NEGATIVE)
[2019-08-17 10:33] LABS: ALBUMIN 3.4 g/dL (3.4-5.0); BILIRUBIN - TOTAL 0.82 mg/dL (0.2-1.3); MAGNESIUM - SERUM 1.7 mg/dL (1.8-2.4); PROTEIN - SERUM 7.7 g/dL (6.4-8.2)
[2019-08-17 19:14] VITALS: BP 113/74
== END 2019-08-17 19:14 ==
LOC: D.ER 09:10
PROVIDERS: Family Medicine
DX: R20.2 Paresthesia of skin (principal); F15.10 Other stimulant abuse, uncomplicated; N28.9 Disorder of kidney and ureter, unspecified; R44.3 Hallucinations, unspecified; F19.10 Other psychoactive substance abuse, uncomplicated; I10 Essential (primary) hypertension; Z72.0 Tobacco use; Z86.718 Personal history of other venous thrombosis and embolism

== ENCOUNTER 2019-08-30 22:51 | Inpatient (IN) | payer OTHER, MEDICAID ==
[~2019-08-30] VITALS: Ht 172.7 cm; Wt 75.0 kg
[2019-08-30 23:52] LABS: HEMATOCRIT 35.9 % (42.0-54.0); HEMOGLOBIN 11.4 g/dL (13.5-17.5); LYMPHOCYTES 26.3 % (15-50); MCH 27.7 pg (26.0-34.0); MCHC 31.8 g/dL (31.0-37.0); MCV 87.1 fL (80.0-100.0); MEAN PLATELET VOLUME 9.1 fL (7.4-10.4); NEUTROPHILS 61.8 % (40-80); PLATELET COUNT 212 10x3/uL (130-400); RBC 4.12 10x6/uL (4.20-6.10); RDW 15.5 % (11.5-14.5); WBC 7.5 10x3/uL (4.8-10.8)
[2019-08-30 23:56] LABS: ANION GAP 12.2 mmol/L (8-16); CALCIUM 8.3 mg/dL (8.5-10.1); CARBON DIOXIDE 29.3 mmol/L (21.0-32.0); CREATININE - SERUM 1.1 mg/dL (0.6-1.3); POTASSIUM - SERUM 4.5 mmol/L (3.5-5.1)
[2019-08-31 00:02] LABS: ALBUMIN 3.2 g/dL (3.4-5.0); BILIRUBIN - TOTAL 0.32 mg/dL (0.2-1.3); PROTEIN - SERUM 7.4 g/dL (6.4-8.2); URIC ACID 4.8 mg/dL (2.6-7.2)
--- NOTE | 2019-08-31 00:25 | NUR ---
PT GIVEN URINAL, DENIES ANY FURTHER NEEDS AT THIS TIME. CALL LIGHT WITHIN REACH. WILL CONTINUE TO MONITOR.
--- NOTE | 2019-08-31 01:00 | NUR ---
ULTRASOUND AT PT'S BEDSIDE TO DO STUDY.
[2019-08-31 03:49] LABS: APPEARANCE CLEAR (CLEAR); BILIRUBIN NEGATIVE (NEGATIVE); COLOR YELLOW (YELLOW); GLUCOSE NEGATIVE (NEGATIVE); KETONE NEGATIVE (NEGATIVE); NITRITE NEGATIVE (NEGATIVE); PROTEIN NEGATIVE (NEGATIVE); SPECIFIC GRAVITY 1.005 (1.005-1.020); UROBILINOGEN NORMAL (NORMAL)
[2019-08-31 03:54] VITALS: BP 110/76; Ht 172.7 cm; Wt 75.0 kg
[2019-08-31 03:59] LABS: UDS - AMPHET NEGATIVE QUAL (NEGATIVE); UDS - BARB NEGATIVE QUAL (NEGATIVE); UDS - BENZO NEGATIVE QUAL (NEGATIVE); UDS - COCAINE POSITIVE QUAL (NEGATIVE); UDS - OPIATE NEGATIVE QUAL (NEGATIVE); UDS - PCP NEGATIVE QUAL (NEGATIVE); UDS - THC POSITIVE QUAL (NEGATIVE)
--- NOTE | 2019-08-31 04:25 | NUR ---
AT 0345 ARRIVED TO FLOOR VIA HOSP STAFF, ALERT AND ORIENTED. PLEASANT MOOD AND AFFECT. BELONGINGS ARE IN BAGS AT BEDSIDE. ABLE TO VOICE ALL NEEEDS. DENIES PAIN AT THIS TIME. REQUESTS FOOD, GRANTED. WILL NOTE ANY CHANGE.
[2019-08-31 05:43] VITALS: BP 110/76
[2019-08-31 06:38] LABS: PROTIME 13.1 SECONDS (11.6-15.0)
[2019-08-31 06:39] LABS: APTT 40.3 SECONDS (22.8-39.4)
[2019-08-31 08:00] VITALS: BP 116/81
[2019-08-31 08:32] LABS: BASOPHILS 0.7 % (0-2); HEMATOCRIT 34.7 % (42.0-54.0); HEMOGLOBIN 11.2 g/dL (13.5-17.5); IMMATURE GRANULOCYTES 0.3 % (0-5); MCH 27.5 pg (26.0-34.0); MCHC 32.3 g/dL (31.0-37.0); MEAN PLATELET VOLUME 9.5 fL (7.4-10.4); MONOCYTES 11.1 % (2-11); NEUTROPHILS 49.9 % (40-80); PLATELET COUNT 234 10x3/uL (130-400); RBC 4.08 10x6/uL (4.20-6.10)
[2019-08-31 08:46] LABS: CALC OSMOLALITY 281 mosm/kg (275-300); CALCIUM 8.2 mg/dL (8.5-10.1); CARBON DIOXIDE 24.7 mmol/L (21.0-32.0); CHLORIDE - SERUM 107 mmol/L (98-107); GLUCOSE 116 mg/dL (74-106); MAGNESIUM - SERUM 1.9 mg/dL (1.8-2.4); PHOSPHOROUS 4.1 mg/dL (2.5-4.9); POTASSIUM - SERUM 3.9 mmol/L (3.5-5.1); SODIUM 141 mmol/L (136-145); UREA NITROGEN 13 mg/dL (7-18); eGFR NON AFRICAN AMERICAN 81 mL/min (90-120)
[2019-08-31 12:00] VITALS: BP 124/79
[2019-08-31 16:00] VITALS: BP 128/85
--- NOTE | 2019-08-31 16:55 | MORECARE ---
CASE MANAGEMENT DISCHARGE SUMMARY PATIENT: NAPOLEON SUTHERLAND III UNIT: [id number] ADM DATE: 08/31/19 AGE: 59 : 60 SEX: M ROOM/BED: D.2135 AUTHOR: GRIFFIN AVENDAÑO PHYSICIAN: REFERRING PHYSICIAN: CL VIDES MD DATE OF SERVICE: 08/31/19 Discharge Plan Patient Name: NAPOLEON SUTHERLAND [facility] [facility] 1960 Planned Disposition: Home Anticipated Discharge Date: 09/01/19 Discharge Date: Expected LOS: 1 Initial Reviewer: [email or web address] Initial Review Date: 08/31/2019 Generated: 08/31/19 5:54 pm DCPIA - Discharge Planning Initial Assessment Updated by [email or web address]: Marcos Rodgers on 08/31/19 4:54 pm * Is the patient Alert and Oriented? Yes * How many steps to enter\\exit or inside your home? NONE * PCP NONE * Pharmacy [facility] AT [place] * Other Environment REPORTS "LAYING IN FRONT OF THE [employer] STORE ON [facility]" * Facility Name NONE; PT REPORTS HAVING A TENT * ADLs Independent * Equipment None * Other Equipment NO MEDICAL EQUIPMENT PROVIDER PREFERENCE * List name and contact numbers for known caregivers / representatives who currently or will assist patient after discharge: MARISA LORD, MOTHER, * Verbal permission to speak to the caregivers and representatives has been obtained from the patient. N/A * Community resources currently utilized None * Please name any agencies selected above. NONE * Additional services required to return to the preadmission environment? No * Can the patient safely return to the preadmission environment? Yes * Has this patient been hospitalized within the prior 30 days at any hospital? No Patient Name: NAPOLEON SUTHERLAND Page 51719 at 1655 All edits/amendments must be made on the electronic document DICTATION DATE: 08/31/191653 INDUCTION COORDINATION POWER ENGINEER: JAMAL 08/31/191653 RPT#: [id number] DC DATE: STATUS: ADM IN [place] [address] [place] [address] END OF REPORT
--- NOTE | 2019-08-31 17:04 | MORECARE ---
CASE MANAGEMENT DISCHARGE SUMMARY PATIENT: NAPOLEON SUTHERLAND III UNIT: [id number] ADM DATE: 08/31/19 AGE: 59 : 60 SEX: M ROOM/BED: D.5512 AUTHOR: KATERYNA,DOC PHYSICIAN: REFERRING PHYSICIAN: CL VIDES MD DATE OF SERVICE: 08/31/19 Discharge Plan Patient Name: NAPOLEON SUTHERLAND Facility: [facility]:[place] : 1960 Planned Disposition: Home Anticipated Discharge Date: 09/01/19 Discharge Date: Expected LOS: 1 Initial Reviewer: [email or web address] Initial Review Date: 08/31/2019 Generated: 08/31/19 6:03 pm Comments DCP- Discharge Planning Updated by [email or web address]: Marcos Rodgers on 08/31/19 4:[address] Patient Name: NAPOLEON SUTHERLAND Admission Status: ER Accout number: [id number] Admission Date: 08-31-2019 : 1960 Admission Diagnosis: Attending: MAHOGANY, Current LOS: 1 Anticipated DC Date: 09-01-2019 Planned Disposition: Home Primary Insurance: NOVASYSMCR Discharge Planning Comments: CM RECEIVED ORDER TO ASSIST IF POSSIBLE, PT DOES NOT HAVE A PRIMARY CARE PHYSICIAN. CM MET WITH PT IN ROOM TO DISCUSS DISCHARGE PLANNING AND NEEDS. PT REPORTS LIVING HOMELESS IN [place] ALONE AND INDEPENDENTLY. PT REPORTS HE "LAYS IN FRONT OF THE [employer] STORE ON [facility]. PT HAS NO MEDICAL EQUIPMENT AND NO OUTSIDE SERVICES ASSISTING. CM DISCUSSED AVAILABILITY OF HOME HEALTH, REHAB SERVICES AND MEDICAL EQUIPMENT. PT DENIES DISCHARGE NEEDS, CM DISCUSSED HOMELESS PENITENTIARY, PT FAMILIAR WITH [facility] [employer] AND HAS USED THEM IN THE PAST. PT DOES USE THE [employer] FOR MEALS. PT REPORTS HE MAY BE WALKING BUT HAS A BIG BAG OF HIS BELONGINGS AND REQUESTED BUS PASS FOR DISCHARGE. PT DOES HAVE MANAGED MEDICARE AND MEDICAID. PT REPORTS ABILITY TO AFFORD HIS MEDICATIONS. CM DISCUSSED PT CALLING HIS AMBETTER CUSTOMER SUPPORT TO FIND IN NETWORK DOCTORS. PT REPORTS UNDERSTANDING. CM PROVIDED PT WITH [employer] CLINIC INFORMATION [facility] FOR PT TO CONTACT FOR POSSIBLE PRIMARY CARE. PT REPORTS UNDERSTANDING. CM DISCUSSED PUBLIC HOUSING AND HOW TO APPLY. PT REPORTS THAT TAKES TOO MUCH PAPERWORK; PT DENIES FURTHER NEEDS FOR DISCHARGE AND REPORTS PLANS TO GET A PLACE TO STAY ONCE HE GETS HIS CHECK. PT PLANS TO DISCHARGE BACK TO [facility] IN [place]. PT WAS PROVIDED WITH BUS PASS FOR DISCHARGE TRANSPORTATION. Privacy Attorney: Marcos Rodgers DCPIA - Discharge Planning Initial Assessment Updated by [email or web address]: Marcos Rodgers on 08/31/19 4:54 pm * Is the patient Alert and Oriented? Yes * How many steps to enter\\exit or inside your home? NONE * PCP NONE * Pharmacy [facility] AT [place] * Other Environment REPORTS "LAYING IN FRONT OF THE [employer] STORE ON [facility]" * Facility Name NONE; PT REPORTS HAVING A TENT * ADLs Independent * Equipment None * Other Equipment NO MEDICAL EQUIPMENT PROVIDER PREFERENCE * List name and contact numbers for known caregivers / representatives who currently or will assist patient after discharge: MARISA LROD, MOTHER, * Verbal permission to speak to the caregivers and representatives has been obtained from the patient. N/A * Community resources currently utilized None * Please name any agencies selected above. NONE * Additional services required to return to the preadmission environment? No * Can the patient safely return to the preadmission environment? Yes * Has this patient been hospitalized within the prior 30 days at any hospital? No Last DP export: 08/31/19 3:55 p Patient Name: NAPOLEON SUTHERLAND Page 20018 at 1704 All edits/amendments must be made on the electronic document DICTATION DATE: 08/31/191702 SOCIAL WORKER MASTERS: JAMAL 08/31/191702 RPT#: [id number] DC DATE: STATUS: ADM IN [facility] [address] [place] [address] END OF REPORT
--- NOTE | 2019-08-31 19:10 | NUR ---
BEDSIDE REPORT RECEIVED FROM DAY SHIFT, PT CARE ASSUMED. INTRODUCED SELF AND WROTE NAME ON BOARD. PT LYING IN BED WITH EYES CLOSED, RR EVEN AND NONLABORED, NO S/S OF DISTRESS, AROUSES EASILY TO VOICE. DENIES ANY NEEDS AT THIS TIME. BED IN LOWEST POSITION, SR X2, CALL LIGHT WITHIN REACH. WILL CONTINUE TO MONITOR.
[2019-08-31 20:00] VITALS: BP 114/78
[2019-09-01] VITALS: BP 116/78
[2019-09-01 04:00] VITALS: BP 112/87
[2019-09-01 05:40] LABS: BASOPHILS 0.6 % (0-2); EOSINOPHILS 4.1 % (0-7); HEMATOCRIT 34.7 % (42.0-54.0); HEMOGLOBIN 11.2 g/dL (13.5-17.5); IMMATURE GRANULOCYTES 0.3 % (0-5); LYMPHOCYTES 34.6 % (15-50); MCH 27.5 pg (26.0-34.0); MCHC 32.3 g/dL (31.0-37.0); MEAN PLATELET VOLUME 9.9 fL (7.4-10.4); MONOCYTES 9.2 % (2-11); NEUTROPHILS 51.2 % (40-80); PLATELET COUNT 205 10x3/uL (130-400); RBC 4.08 10x6/uL (4.20-6.10)
[2019-09-01 06:23] LABS: CALC OSMOLALITY 274 mosm/kg (275-300); CALCIUM 8.1 mg/dL (8.5-10.1); CARBON DIOXIDE 25.6 mmol/L (21.0-32.0); CHLORIDE - SERUM 104 mmol/L (98-107); GLUCOSE 134 mg/dL (74-106); MAGNESIUM - SERUM 1.7 mg/dL (1.8-2.4); PHOSPHOROUS 4.2 mg/dL (2.5-4.9); POTASSIUM - SERUM 4.3 mmol/L (3.5-5.1); SODIUM 137 mmol/L (136-145); UREA NITROGEN 11 mg/dL (7-18); eGFR NON AFRICAN AMERICAN 81 mL/min (90-120)
[2019-09-01 08:00] VITALS: BP 130/91
--- NOTE | 2019-09-01 08:15 | NUR ---
PT RESTING, RR EVEN AND UNLABORED. NO DISTRESS NOTED. BED IN LOWEST POSITION. CALL LIGHT WITHIN REACH. WILL CONTINUE TO MONITOR.
[2019-09-01 16:00] VITALS: BP 130/91
--- NOTE | 2019-09-01 19:21 | NUR ---
RECEIVED UP IN CHAIR. ALERT AND ORIENTED UP AD KANIKA. NONCOMPLIANT WITH BEDREST. LEFT LOWER EXTREMITY WARM AND SWOLLEN. TELEMETRY IN PLACE. DENIES ANY NJEEDS AT THIS TIME.
--- NOTE | 2019-09-01 19:50 | NUR ---
INITIAL ROUNDS COMPLETED AT 1915 HRS. H20 PROVIDED AT 5 HRS. PT STATED HE WANTED SOME COFFEE. INFORMED PT TAHT COFFEE WILL BE PROVIDED AFTER THIS NURSE STARTED AN IV ON ANOTHER PT. WENT BACK TO PT'S ROOM AT 5 HRS AND PT STATED " GET OUT, YOU ARE FIRED."
[2019-09-01 20:00] VITALS: BP 150/101
[2019-09-02] VITALS: BP 120/101
[2019-09-02 04:00] VITALS: BP 123/86
--- NOTE | 2019-09-02 04:28 | NUR ---
REQUESTED IV BE TAKEN OUT OF LT AC. D/C'D IV AND RESTARTED TO LEFT FOREARM. ATTEMPTS X3.
[2019-09-02 06:39] LABS: BASOPHILS 0.3 % (0-2); EOSINOPHILS 3.7 % (0-7); HEMATOCRIT 36.9 % (42.0-54.0); HEMOGLOBIN 11.7 g/dL (13.5-17.5); IMMATURE GRANULOCYTES 0.2 % (0-5); LYMPHOCYTES 28.9 % (15-50); MCH 27.1 pg (26.0-34.0); MCHC 31.7 g/dL (31.0-37.0); MCV 85.6 fL (80.0-100.0); MONOCYTES 11.1 % (2-11); NEUTROPHILS 55.8 % (40-80); PLATELET COUNT 214 10x3/uL (130-400); RBC 4.31 10x6/uL (4.20-6.10); RDW 14.9 % (11.5-14.5); WBC 6.5 10x3/uL (4.8-10.8)
[2019-09-02 06:41] LABS: CALC OSMOLALITY 280 mosm/kg (275-300); CALCIUM 8.8 mg/dL (8.5-10.1); CARBON DIOXIDE 30.3 mmol/L (21.0-32.0); CHLORIDE - SERUM 103 mmol/L (98-107); GLUCOSE 129 mg/dL (74-106); PHOSPHOROUS 3.6 mg/dL (2.5-4.9); POTASSIUM - SERUM 4.7 mmol/L (3.5-5.1); SODIUM 139 mmol/L (136-145); UREA NITROGEN 15 mg/dL (7-18); eGFR NON AFRICAN AMERICAN 81 mL/min (90-120)
[2019-09-02 08:00] VITALS: BP 128/91
[2019-09-02 12:00] VITALS: BP 113/79
--- NOTE | 2019-09-02 12:19 | NUR ---
MEDICATED FOR PAIN IN LEFT FOOT. RESTING IN BED AT THIS TIME.
--- NOTE | 2019-09-02 15:53 | NUR ---
MEDICATED FOR PAIN AT THIS TIME. NO DISTRESS. LYING IN BED WITH ATTENTION TOWARD TELEVISION.
[2019-09-02 16:00] VITALS: BP 131/89
[2019-09-02] MEDS ORDERED: ELIQUIS5 MG PO (16:17)
--- NOTE | 2019-09-02 18:08 | NUR ---
PT STATES HE IS HOMELESS AND HAS NO WHERE TO GO IF DISCHARGED TONIGHT. CALLED BEAU GRAMAJO AND SHE SAID TO HOLD DISCHARGE UNTIL TOMORROW WHEN CASE MANAGEMENT CAN SEE HIM. WHEN I WENT INTO ROOM TO INFORM HIM OF THIS AND GIVE HIS FLU SHOT, HE WAS GONE. HEP LOCK HAD BEEN PULLED OUT AND LAYING ON CHAIR. GRASSROOTS ORGANIZER INFORMED OF THIS.
--- NOTE | 2019-09-03 09:10 | MORECARE ---
CASE MANAGEMENT DISCHARGE SUMMARY PATIENT: NAPOLEON SUTHERLAND III UNIT: [id number] ADM DATE: 08/31/19 AGE: 59 : 60 SEX: M ROOM/BED: D.1278 AUTHOR: KATERYNA,DOC PHYSICIAN: REFERRING PHYSICIAN: CL VIDES MD DATE OF SERVICE: 09/03/19 Discharge Plan Patient Name: NAPOLEON SUTHERLAND Facility: [facility]:[place] : 1960 Planned Disposition: Home Anticipated Discharge Date: 09/01/19 Discharge Date: 09/02/2019 Expected LOS: 1 Initial Reviewer: [email or web address] Initial Review Date: 08/31/2019 Generated: 09/03/19 10:10 am DCP- Discharge Planning Updated by [email or web address]: Marcos Rodgers on 08/31/19 4:[address] Patient Name: NAPOLEON SUTHERLAND Admission Status: ER Accout number: [id number] Admission Date: 08-31-2019 : 1960 Admission Diagnosis: Attending: MAHOGANY, Current LOS: 1 Anticipated DC Date: 09-01-2019 Planned Disposition: Home Primary Insurance: NOVASYAcetylon PharmaceuticalsCR Discharge Planning Comments: CM RECEIVED ORDER TO ASSIST IF POSSIBLE, PT DOES NOT HAVE A PRIMARY CARE PHYSICIAN. CM MET WITH PT IN ROOM TO DISCUSS DISCHARGE PLANNING AND NEEDS. PT REPORTS LIVING HOMELESS IN [place] ALONE AND INDEPENDENTLY. PT REPORTS HE "LAYS IN FRONT OF THE [employer] STORE ON [facility]. PT HAS NO MEDICAL EQUIPMENT AND NO OUTSIDE SERVICES ASSISTING. CM DISCUSSED AVAILABILITY OF HOME HEALTH, REHAB SERVICES AND MEDICAL EQUIPMENT. PT DENIES DISCHARGE NEEDS, CM DISCUSSED HOMELESS [facility], PT FAMILIAR WITH [facility] [employer] AND HAS USED THEM IN THE PAST. PT DOES USE THE [employer] FOR MEALS. PT REPORTS HE MAY BE WALKING BUT HAS A BIG BAG OF HIS BELONGINGS AND REQUESTED BUS PASS FOR DISCHARGE. PT DOES HAVE MANAGED MEDICARE AND MEDICAID. PT REPORTS ABILITY TO AFFORD HIS MEDICATIONS. CM DISCUSSED PT CALLING HIS AMBETTER CUSTOMER SUPPORT TO FIND IN NETWORK DOCTORS. PT REPORTS UNDERSTANDING. CM PROVIDED PT WITH [employer] CLINIC INFORMATION WELL [facility] CLINIC FOR PT TO CONTACT FOR POSSIBLE PRIMARY CARE. PT REPORTS UNDERSTANDING. CM DISCUSSED PUBLIC HOUSING AND HOW TO APPLY. PT REPORTS THAT TAKES TOO MUCH PAPERWORK; PT DENIES FURTHER NEEDS FOR DISCHARGE AND REPORTS PLANS TO GET A PLACE TO STAY ONCE HE GETS HIS CHECK. PT PLANS TO DISCHARGE BACK TO [facility] IN [place]. PT WAS PROVIDED WITH BUS PASS FOR DISCHARGE TRANSPORTATION. Store Consultant: Marcos Rodgers DCPIA - Discharge Planning Initial Assessment Updated by [email or web address]: Marcos Rodgers on 08/31/19 4:54 pm * Is the patient Alert and Oriented? Yes * How many steps to enter\\exit or inside your home? NONE * PCP NONE * Pharmacy [facility] AT [place] * Other Environment REPORTS "LAYING IN FRONT OF THE [employer] STORE ON [facility]" * Facility Name NONE; PT REPORTS HAVING A TENT * ADLs Independent * Equipment None * Other Equipment NO MEDICAL EQUIPMENT PROVIDER PREFERENCE * List name and contact numbers for known caregivers / representatives who currently or will assist patient after discharge: MARISA LORD, MOTHER, * Verbal permission to speak to the caregivers and representatives has been obtained from the patient. N/A * Community resources currently utilized None * Please name any agencies selected above. NONE * Additional services required to return to the preadmission environment? No * Can the patient safely return to the preadmission environment? Yes * Has this patient been hospitalized within the prior 30 days at any hospital? No Last DP export: 08/31/19 4:04 p Patient Name: NAPOLEON SUTHERLAND Page [id number] at 0910 All edits/amendments must be made on the electronic document DICTATION DATE: 09/03/19909 SPEECH/LANGUAGE THERAPIST: JAMAL 09/03/19909 RPT#: [id number] DC DATE:09/02/19 STATUS: DIS IN [facility] [address] [place] [address] END OF REPORT
--- NOTE | 2019-09-04 11:24 | EC ---
PATIENT:NAPOLEON SUTHERLAND III DATE OF SERVICE: 08/31/19 SEX: M MEDICAL RECORD: [id number] DATE OF : 60 LOCATION:D.M2 D.213 AGE OF PATIENT: 59 ADMISSION DATE: 08/31/19 REFERRING PHYSICIAN: INTERPRETING PHYSICIAN: ZACHARY KELLEY MD ECHOCARDIOGRAM REPORT ECHO CHARGES 4 ECHO COMPLETE Date: 08/31/19 CLINICAL DIAGNOSIS: SOB W/EXERSION, HTN ECHOCARDIOGRAPHIC MEASUREMENTS (adult normal given) AC root (d.<3.7cm) 3.4 cm LV Septum d (<1.2 cm> 0.6 cm Valve Excursion 2.3 cm LV Septum (systole) 0.7 cm Left Atria (s.<4.0cm> 2.9 cm LVPW d(<1.2cm) 0.6 cm RV (d.<2.3cm) 3.1 cm LVPW (sytole) 1.1 cm LV diastole(<5.6CM) 5.1 cm MV E-F(>70mm/sec) cm LV systole 4.1 cm LVOT Diameter 2.1 cm MV exc.(>10mm) cm Est.ejection fraction (50-75%) % DOPPLER: LVIT cm/sec A 55 cm/sec E 78 cm/sec LA cm/sec RVSP 18.3 mmHg LVOT 100 cm/sec AOP1/2T m/s Asc. Ao 140 cm/sec RVOT 67 cm/sec RA cm/sec PA 80 cm/sec AV Gradient Peak 7.9 mmHg AV Mean 4.1 mmHg AV Area 2.8 cm MV Gradient Peak 3.4 mmHg MV Mean 1.6 mmHg MV Area cm COMMENTS: Ortho Nurse: Tess PASTRANA P 3 Armament/Ordnance Ima Technician: 1 Dr. Kelley TAPE# PACS Pericardial Effusion N DATE OF SERVICE: PROCEDURE: Echocardiogram. FINDINGS: 1. Left ventricular chamber size is within normal limits. Left ventricular systolic function is normal. Overall ejection fraction estimated at 60%. 2. Left atrium, right atrium, and right ventricle chamber sizes are within normal limits. 3. Valvular structures have normal structure and motion. ECHOCARDIOGRAM REPORT [id number] NAPOLEON SUTHERLAND III 4. Doppler interrogation reveals trace tricuspid regurgitation, no other valvular insufficiency or stenosis. Pulmonary systolic pressure estimated at 18 mmHg. 5. No evidence of pericardial effusion or left ventricular thrombus. TRANSINT:[id number] Voice Confirmation ID: [id number] DOCUMENT ID: [id number] ZACHARY KELLEY MD at 1124 CC: [id number] DICTATION DATE: 09/01/1936 MIRROR PAINTER: 09/01/19 1106 DIS IN 09/02/19 [place] [id number] [place] [id number]
== END 2019-09-02 18:11 | disposition home or self-care (01) | DRG 300 ==
LOC: D.ER 22:51 → D.M2 08-31 02:37 → OBSVTIME 08-31 02:37 → D.M2 08-31 02:37
PROVIDERS: Family Medicine; ADMIT Family Medicine; ATTEND Family Medicine
DX: I82.402 Acute embolism and thrombosis of unspecified deep veins of left lower extremity (principal); F17.213 Nicotine dependence, cigarettes, with withdrawal; D64.9 Anemia, unspecified; I10 Essential (primary) hypertension; Z79.01 Long term (current) use of anticoagulants; Z59.0 Homelessness